=== PATIENT | male | born 1980 | race Caucasian/White ===

== ENCOUNTER → 2021-09-08 14:16 | Outpatient (BNVA) | payer BC, SELFPAY | PROVIDERS: Family Provider Nurse Practitioner; PCP Nurse Practitioner; Visit Provider Nurse Practitioner Family | DX: I10 Essential (primary) hypertension (principal); R73.9 Hyperglycemia, unspecified | CPT/HCPCS: 80053; 80061; 83036; 84443; 85025 ==

== ENCOUNTER 2021-10-24 14:44 | Emergency (ER) | payer BC, SELFPAY ==
[2021-10-24 14:49] VITALS: BP 213/143; PULSE 105; RESP 20; TEMP 36.9; O2SAT 96; BMI 44.4
--- NOTE | 2021-10-24 14:58 | ED_ITS ---
HPI - Back Pain/Injury General: Chief Complaint: Back Pain/Injury Stated Complaint: Back pain Time Seen by Provider: 10/24/21 14:55 History of Present Illness: Patient is a 41-year-old male who comes to the ED with lower back pain. Patient works for the [employer] and says he was riding on and they hit a rough spot of the tracks. He was sitting and caused jarring injury to lower back. Injury occurred last night. He currently has 3 out of 10 pain worsens with movement or when he standing. The pain is in his lower back and then radiates down to his right leg. Pain improves when he is sitting. Denies any pelvic anesthesia, bladder or bowel incontinence or any weakness to lower extremities. Associated symptoms: Deny abdominal pain, chills, dysuria, fatigue, fever(s), hematuria, nausea or vomiting Review of Systems Const: Denies: fever(s), chills or fatigue Eyes: Denies: change in vision or eye discomfort ENMT: Denies: throat pain, odynophagia, nasal discharge or nasal congestion Card: Denies: chest pain, palpitations, edema, swelling of feet/ankles, dyspnea on exertion or orthopnea Resp: Denies: dyspnea, productive cough or non-productive cough GI: Denies: abdominal pain, nausea, vomiting, diarrhea, constipation or hematochezia : Denies: flank pain, difficulty urinating, dysuria or hematuria Musc: Reports: back pain; Denies: neck pain or extremity swelling Skin/Breast: Denies: rash or new lesions Neuro: Denies: headache(s), numbness in extremities or weakness in extremities PFSH ED PFSH: Medical History No pertinent past medical history Surgical History Hx of knee surgery left knee Social History Smoking and tobacco status: former smoker Second hand smoke exposure: No Smoking risk assessment/counseling performed?: No Alcohol intake: never Desire information about alcohol rehabilitation?: No Counseling given: No Desire information about substance/drug rehabilitation?: No Counseling given: No Adopted: No Caregiver/support person: No Lives independently: No Household members: none Housing: House Physical Exam Const: COMMON NORMALS: no acute distress, patient oriented x3 and alert HENMT: COMMON NORMALS: normocephalic HEAD & SCALP: normocephalic MOUTH: Normal oral and palatal mucosa present THROAT: posterior oropharynx normal and uvula midline Neck/C-Spine: COMMON NORMALS: supple GENERAL: Yes normal visual inspection Resp: COMMON NORMALS: normal respiratory effort, No retractions, No use of accessory muscles and clear to auscultation bilaterally AUSCULTATION: clear to auscultation bilaterally Cardio: COMMON NORMALS: regular rate, regular rhythm, S1 normal heart sound present, S2 normal heart sound present, No gallops present (Cardio), No clicks present (Cardio), No murmurs present (Cardio) and Peripheral pulses 2+ throughout RATE: regular rate RHYTHM: regular rhythm HEART SOUNDS: S1 normal heart sound present and S2 normal heart sound present PERIPHERAL PULSES: Peripheral pulses 2+ throughout GI: COMMON NORMALS: Normal to inspection, nondistended, normoactive bowel sounds present, Soft to palpation, non-tender and no masses PALPATION: Yes Soft to palpation : COMMON NORMALS: Yes no CVA tenderness BLADDER/KIDNEY EXAM: Yes no CVA tenderness Back/Pelvis: COMMON NORMALS: no CVA tenderness LUMBAR SPINE/LOWER BACK: Yes lumbar spinal tenderness Lumbar spinal tenderness location: L3 and L4 and Yes paraspinal muscle tenderness Lumbar paraspinal muscle tenderness: right Right lumbar paraspinal muscle tenderness: L3 and L4 Extremity: COMMON NORMALS: normal to inspection Neuro: COMMON NORMALS: patient oriented x3 and moves all extremities SENSORIUM/ORIENTATION: Yes alert Skin: GENERAL SKIN EXAM: dry skin Course Vital Signs: Vital signs: Vital Signs Temperature 98.4 F 10/24/21 14:49 Pulse Rate 98 10/24/21 16:42 Respiratory Rate 20 H 10/24/21 16:42 Blood Pressure 210/105 10/24/21 16:42 Pulse Oximetry 98 10/24/21 16:42 MDM - Back Pain/Injury Medical Decision Making Patient is a 41-year-old male who comes to the ED with back pain. Pain radiates down into right leg. Symptoms started after having a jarring injury to lower back. Denies any cauda equina symptoms. X-ray of lumbar spine shows no acute fractures or findings. Patient was given a dose of Toradol, Norflex and Solu- Medrol here in the ED. He was diagnosed with lumbar radiculopathy and discharged home with a prescription for Celebrex, Flexeril and prednisone. He still follow-up with his PCP in 7 to 10 days for reevaluation. Return to ED precautions given. Patient understood and agree with plan. Labs Radiology Impressions Lumbar Spine X-Ray 10/24/21 15:04 IMPRESSION: No acute finding. Discharge Plan Discharge Patient Disposition: Home Clinical Impression: Lumbar radiculopathy Condition: Stable Prescriptions: New celecoxib 100 mg capsule 100 mg PO BID Qty: 20 0RF cyclobenzaprine 10 mg tablet 10 mg PO BID PRN (Reason: muscle spasms and pain) Qty: 20 0RF prednisone 20 mg tablet 20 mg PO BID 5 Days Qty: 10 0RF Discharge Orders: Discharge ED (Routine); Ordered 10/24/21 Ordered By: Juan Luis Knox Referrals: Jelena Cota FNP-C [Family Provider] - Mai Burdick FNP-C [Primary Care Provider] - Discharge Diet: Regular Discharge Activity: Increase activity as tolerated Patient Instructions: Lumbar Radiculopathy (ED) Activity Restrictions/Additional Instructions: Follow-up with medical provider as directed in 5 to 7 days for reevaluation. Take medications as prescribed. Return to the ER or your medical provider if condition worsens. Please read and understand discharge instructions. Thank you for choosing [facility] for your healthcare needs today. Please realize this is an emergency room and that we are providing you with a medical screening exam and this may not be complete and all inclusive of all the testing and or work up that you may need to determine your ailment or severity of your illness. It is very important that you follow up as instructed or that you return to the Emergency Department should you have concerns or if your condition changes or worsens in any way. 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
--- NOTE | 2021-10-24 15:04 | XRR_ITS ---
PROCEDURE INFORMATION: Exam: XR Lumbosacral Spine Exam date and time: 10/24/2021 3:04 PM Age: 41 years old Clinical indication: Low back pain; Patient HX: C/O lbp after being bob at work last night; Additional info: Injury-bob back while at work TECHNIQUE: Imaging protocol: XR of the lumbosacral spine. Views: 2 or 3 views. COMPARISON: No relevant prior studies available. FINDINGS: Bones/joints: Normal. No acute fracture. Normal alignment. Soft tissues: Unremarkable. XR/XR lumbar spine 2-3V* [id number] IMPRESSION: No acute finding.
[2021-10-24] MEDS: orphenadrine 30 mg/mL Inj 2 mL 60 MG IM (15:19)
[2021-10-24] MEDS: ketorolac 60 mg/2 mL INJ IM (15:19)
[2021-10-24 16:42] VITALS: BP 210/105; PULSE 98; RESP 20; O2SAT 98
== END 2021-10-24 16:44 | disposition home or self-care (01) ==
PROVIDERS: Emergency Provider Physician Assistant; Family Provider Nurse Practitioner; PCP Nurse Practitioner Family
DX: M54.16 Radiculopathy, lumbar region (principal); Z87.891 Personal history of nicotine dependence
CPT/HCPCS: 72100; 96372; 99283; J1885; J2360; J2930

== ENCOUNTER 2021-12-08 13:35 | Outpatient (CLI) | payer BC, SELFPAY ==
--- NOTE | 2021-12-08 13:45 | MR_ITS ---
WS: [id number] MRI CERVICAL SPINE NONCONTRAST TECHNIQUE: Sagittal T1, T2 and STIR imaging. Axial T2, gradient, and fiesta imaging. CLINICAL INFORMATION: M54.2 - Cervicalgia COMPARISON: None. FINDINGS: Images somewhat degraded by patient motion. Straightening of the normal cervical lordosis. No high-grade central canal narrowing. Mild disc bulgi ng worse at C5-C6. Incidental magna cisterna magna seen in the posterior fossa on the sagittal imagin g. C2-C3: Normal. C3-C4: Mild facet arthropathy. Spinal canal and foramen are patent. C4-C5: Mild disc osteophytic ridging. Mild to moderate LEFT and mild RIGHT bony foraminal narrowing. Moderate facet arthropathy. Spinal canal is patent. C5-C6: Shallow RIGHT pericentral protrusion. Mild central canal stenosis. Mild LEFT greater than RIGH T foraminal narrowing. Mild/moderate facet arthropathy. C6-C7: No significant disc bulging. Spinal canal and foramen are patent. Mild facet arthropathy. C7-T1: Mild disc osteophytic ridging. Slight effacement of ventral thecal sac. Mild LEFT and no signi ficant RIGHT foraminal narrowing. Visualized brain stem structures: Normal. Prevertebral soft tissues: Normal. MR/MR cervical spin wo con* [id number] IMPRESSION: 1. Straightening of the normal cervical lordosis. Cord signal is normal. 2. Shallow RIGHT pericentral protrusion C5-C6 with slight contact of the cervi leda cord and mild central canal stenosis. 3. Mild to moderate bony foraminal narrowing worse at LEFT C4-C5, LEFT C5-C6, and LEFT C7-T1.
--- NOTE | 2021-12-08 14:30 | MR_ITS ---
WS: [id number] MRI LUMBAR SPINE NONCONTRAST TECHNIQUE: Sagittal T1, T2 and STIR imaging. Axial T1 and T2 imaging. CLINICAL INFORMATION: M54.50 - Low back pain, unspecified COMPARISON: None. FINDINGS: Mild lumbar curve. No acute compression. No high-grade central canal stenosis. Disc bulging worse L5- S1 with a small annular tear.Tapering of the thecal sac at L4-L5 and L5-S1 due to prominent epidural fat. L1-L2: No significant disc bulging. Mild facet arthropathy. Spinal canal and foramen are patent. L2-L3: Mild annular bulging eccentric to the LEFT. Small LEFT foraminal protrusion with mild LEFT for aminal narrowing. Mild facet arthropathy. L3-L4: Mild annular bulging. Moderate facet arthropathy. Spinal canal and foramen are patent. L4-L5: Mild annular bulging. Slight narrowing of the RIGHT subarticular recess. Narrowing of the thec al sac due to prominent circumferential epidural fat. Mild RIGHT and no significant LEFT foraminal na rrowing. Moderate facet arthropathy. L5-S1: LEFT eccentric disc bulging with a small annular tear. Slight contact of the traversing LEFT S 1 nerve root. Mild LEFT foraminal narrowing. Mild facet arthropathy. Visualized pelvic bony structures: Normal. Paravertebral soft tissues: Normal. MR/MR lumbar spine wo con* [id number] IMPRESSION: 1. Mild lumbar curve. No acute compression. No high-grade central canal stenos is. 2. LEFT eccentric disc bulging L5-S1 with small annular tear. Slight contact t raversing LEFT S1 nerve root. 3. Small LEFT proximal foraminal protrusion L2-L3 with mild LEFT foraminal jayshree rowing. 4. Small RIGHT foraminal protrusion L4-L5 with mild RIGHT foraminal narrowing and slight contact of the exiting RIGHT L4 nerve root. 5. Mild to moderate facet arthropathy L3-L5. 6. Tapering of the thecal sac at L4-L5 and L5-S1 due to prominent epidural fat .
--- NOTE | 2021-12-08 15:15 | MR_ITS ---
WS: [id number] MRI THORACIC SPINE WITHOUT CONTRAST TECHNIQUE: Sagittal T1, T2 and STIR imaging. Axial T2 imaging. Noncontrast imaging obtained. CLINICAL INFORMATION: M54.6 - Pain in thoracic spine COMPARISON: None. FINDINGS: Some images are degraded due to wrap artifact. Mild thoracic kyphosis. No acute compression. No high-grade central canal stenosis. A few Schmorl's n odes in the mid thoracic spine. No acute compression fractures. Mild facet arthropathy in the lower thoracic spine. Mild LEFT T8-T9 bony foraminal narrowing.Tiny sha llow central protrusions at T5-T6,T10-T11 and T11-T12. Adrenal glands are normal. Normal caliber thoracic aorta. MR/MR thoracic spin wo con* [id number] IMPRESSION: Some images degraded by artifact. 1. Mild thoracic kyphosis. No acute compression. No high-grade central canal s tenosis. 2. Cord signal is normal. 3. A few Schmorl's nodes in the mid thoracic spine. 4. Tiny shallow central protrusions at T5-T6,T10-T11 and T11-T12. 5. Mild LEFT T8-T9 bony foraminal narrowing. 6. Moderate facet arthropathy in the lower thoracic spine.
== END 2021-12-08 13:36 | disposition home or self-care (01) ==
PROVIDERS: PCP Nurse Practitioner Family; Visit Provider Nurse Practitioner Family
DX: M43.6 Torticollis (principal); Y92.815 Train as the place of occurrence of the external cause; Y99.0 Civilian activity done for income or pay; M40.294 Other kyphosis, thoracic region; M51.44 Schmorl's nodes, thoracic region; M47.814 Spondylosis without myelopathy or radiculopathy, thoracic region; M51.24 Other intervertebral disc displacement, thoracic region; M47.816 Spondylosis without myelopathy or radiculopathy, lumbar region; M51.26 Other intervertebral disc displacement, lumbar region; M51.27 Other intervertebral disc displacement, lumbosacral region; M50.222 Other cervical disc displacement at C5-C6 level
CPT/HCPCS: 72141; 72146; 72148

== ENCOUNTER 2022-01-12 06:00 | Outpatient (RCR) | payer OTHER, BC, SELFPAY | END 2022-01-26 23:59 | disposition home or self-care (01) | LOC: TPT 06:00 | PROVIDERS: PCP Nurse Practitioner Family; Referring Provider Orthopaedic Surgery; Visit Provider Orthopaedic Surgery | DX: M54.9 Dorsalgia, unspecified (principal) | CPT/HCPCS: 97110; 97162 ==

== ENCOUNTER 2022-01-27 06:00 | Outpatient (RCR) | payer OTHER, BC, SELFPAY | END 2022-02-12 23:59 | disposition home or self-care (01) | LOC: TPT 06:00 | PROVIDERS: PCP Nurse Practitioner Family; Referring Provider Orthopaedic Surgery; Visit Provider Orthopaedic Surgery | DX: M54.50 Low back pain, unspecified (principal); M54.6 Pain in thoracic spine | CPT/HCPCS: 97110 ==

== ENCOUNTER 2023-11-14 20:00 | Outpatient (CLI) | payer BC, SELFPAY | END 2023-11-14 20:01 | disposition home or self-care (01) | LOC: SLEEP 11-15 03:30 | PROVIDERS: PCP Nurse Practitioner Family; Visit Provider Family Medicine | DX: G47.33 Obstructive sleep apnea (adult) (pediatric) (principal) | CPT/HCPCS: 95810 ==

== ENCOUNTER 2024-02-14 20:00 | Outpatient (CLI) | payer BC, SELFPAY | END 2024-02-14 20:01 | disposition home or self-care (01) | LOC: SLEEP 02-15 05:13 | PROVIDERS: PCP Nurse Practitioner Family; Visit Provider Family Medicine | DX: G47.33 Obstructive sleep apnea (adult) (pediatric) (principal); Z99.89 Dependence on other enabling machines and devices | CPT/HCPCS: 95811 ==

== ENCOUNTER → 2024-05-29 12:05 | Outpatient (BNVA) | payer BC, SELFPAY | PROVIDERS: PCP Nurse Practitioner Family; Visit Provider Nurse Practitioner Family | DX: I10 Essential (primary) hypertension (principal) | CPT/HCPCS: 80053; 80061; 84443; 85025 ==